=== PATIENT | male | born 1970 | race Caucasian/White ===

== ENCOUNTER 2016-11-30 21:10 | Emergency (ER) | payer SELFPAY ==
[~2016-11-30] VITALS: Ht 188 cm; Wt 133.0 kg
[~2016-11-30 21:10] MED LIST: ASPIRIN EC81 MG PO; BACTRIM DS1 TAB PO; HYDROCHLORO25 MG/TAB PO; LASIX 40 MG TAB40 MG PO; LASIX40 MG PO; LISINOPRIL10 MG PO; LISINOPRIL20 M1 PO; LORTAB 7.5 PO; METFORMIN500 MG PO; METOPROL TAR50 MG PO; METOPROLOL PO; MEVACOR20 MG PO; NO; ZESTRIL2.5 MG PO
[2016-11-30 21:12] VITALS: BP 152/117
== END 2016-11-30 21:25 | disposition left against medical advice (07) | DRG 951 ==
LOC: ED 21:10 → LWOBS 21:25
DX: Z91.19 Patient's noncompliance with other medical treatment and regimen (principal)

== ENCOUNTER 2016-12-03 15:26 | Observation (INO) | payer OTHER ==
[~2016-12-03] VITALS: Ht 188 cm; Wt 131.1 kg
[2016-12-03 00:33] VITALS: BP 136/99
--- NOTE | 2016-12-03 15:35 | NUR ---
PT TO ROOM FOR TREATMENT VIA WHEELCHAIR
[2016-12-03 16:06] LABS: HEMATOCRIT 48.5 % (39.0-50.0); HEMOGLOBIN 15.5 g/dl (14.0-18.0); IMMATURE GRANULOCYTES 0.5 % (0.0-1.0); MEAN CELL VOLUME 88.7 fL CALC (80.0-100.0); MEAN CORPUSCULAR HGB 28.3 pG CALC (26.0-32.0); NEUT# 5.66 thou/uL (1.82-7.42); RED BLOOD COUNT 5.47 mill/uL (4.70-6.10); RED CELL DISTRI WIDTH 17.6 % (11.5-15.5)
--- NOTE | 2016-12-03 16:15 | NUR ---
PT STATES THAT HE IS BEHIND ON HIS LASIX, THINKS THAT IS WHY HE IS SHORT OF BREATH.
--- NOTE | 2016-12-03 16:51 | NUR ---
PT PLACED ON O-2 PER SHORTNESS OF BREATH, DOES BECOME TACHYPNEIC WITH EXERTION.
[2016-12-03 17:14] LABS: ALBUMIN 3.8 g/dL (3.2-5.0); ALKALINE PHOSPHATASE 72 u/l (38-126); ANION GAP 16 (6-22 (CALC)); BILIRUBIN, TOTAL 0.8 mg/dL (0.0-1.4); BUN 21 mg/dL (9-20); BUN/CREATININE RATIO 17 (12-20 (CALC)); CALCIUM 9.2 mg/dL (8.4-10.2); CARBON DIOXIDE 25 mmol/l (22-30); CHLORIDE 103 mmol/l (95-108); CREATININE 1.3 mg/dL (0.7-1.3); GFR 60 ML/MIN (>=60 (CALC)); GFR FOR AFR.AMER. > 60 ML/MIN (>=60 (CALC)); GLUCOSE 132 mg/dL (75-110); SGOT/AST 40 u/l (17-59); SGPT/ALT 24 u/l (21-72); SODIUM 139 mmol/l (137-146); TOTAL PROTEIN 7.5 g/dL (6.3-8.2)
[2016-12-03 17:24] LABS: MYOGLOBIN 30 ng/mL (0 - 121)
--- NOTE | 2016-12-03 17:29 | NUR ---
PT SEEN TO HAVE SATS AT 82-84% WITHOUT OXYGEN, POSSIBLE SLEEP APNEA, RECOVERS QUICKLY TO 96-98% WHEN WAKENED.
[2016-12-03] MEDS ORDERED: LASIX 40 MG40 MG/TAB PO (17:41)
[2016-12-03] MEDS ORDERED: ASPIRIN81 MG PO (17:41)
[2016-12-03] MEDS ORDERED: ATORVASTATIN CA20 MG PO (17:42)
[2016-12-03] MEDS ORDERED: LOSARTAN POTASS25 MG PO (17:42)
[2016-12-03] MEDS ORDERED: SPIRONOLACT25 MG PO (17:42)
[2016-12-03] MEDS ORDERED: COREG25 MG PO (17:43)
--- NOTE | 2016-12-03 19:18 | NUR ---
REPORT TO ELBA, TO FLOOR SOON.
[2016-12-03 19:25] VITALS: BP 134/95
--- NOTE | 2016-12-03 19:25 | NUR ---
PT ARRIVED TO UNIT VIA STRETCHER WITH JOSE VARGAS. BEDSIDE REPORT RECEIVED. PT AMBULATED TO CHAIR AT BEDSIDE. SHORTNESS OF BREATH NOTED WITH EXERTION. OXYGEN IN PLACE AT 2L VIA NC. PT DENIES PAIN. DECLINED DIABTETIC MEDICATION ORDERED EARLIER. STATES THAT HE IS NOT A DIABETIC AND WILL NOT TAKE THE ORAL MEDICATION. PT ORIENTED TO ROOM. SAFETY MEASURES PUT IN PLACE. CALL LIGHT SYSTEM REVIEWED AND IN REACH. WILL CONTINUE TO MONITOR AND FOLLOW UP WITH EDUCATION ON MEDICATION AND DIABETES.
--- NOTE | 2016-12-03 19:31 | NUR ---
PT TAKEN TO ROOM 283 WITHOUT INCIDENT, REFUSES GOWN, REMOVED OXYGEN.
[2016-12-03 20:15] LABS: URINE BILIRUBIN - DIPSTICK NEGATIVE (NEGATIVE); URINE BLOOD DIPSTICK NEGATIVE (NEGATIVE); URINE CLARITY CLEAR; URINE COLOR YELLOW; URINE GLUCOSE - DIPSTICK NEGATIVE (NEGATIVE); URINE KETONE NEGATIVE (NEGATIVE); URINE LEUK ESTERASE NEGATIVE (Negative); URINE NITRITE - DIPSTICK NEGATIVE (Negative); URINE PROTEIN - DIPSTICK 30 mg/dL (NEG-TRACE); URINE SPECIFIC GRAVITY 1.015; URINE UROBILINOGEN - DIPSTICK 0.2 E.U./dL (0.2)
[2016-12-03 20:17] LABS: URINE SQUAMOUS EPITHELIAL CELL FEW EPI/hpf (0-FEW)
--- NOTE | 2016-12-04 | NUR ---
PT RESTING IN BED ON LEFT SIDE. UP TO BATHROOM NEEDED. DENIES PAIN. RESPIRATIONS EVEN AND SHALLOW. PT REMOVES NASAL CANNULA AND IS NONCOMPLIANT AT TIMES. SAFETY MEASURES IN PLACE. CALL LIGHT WITHIN REACH.
--- NOTE | 2016-12-04 04:00 | NUR ---
PT ASLEEP AT THIS TIME. NO SIGNS OF PAIN OR DISCOMFORT NOTED. RESPIRATIONS EVEN AND SHALLOW ON ROOM AIR. UP TO BATHROOM AD LINDA. INSTRUCTED TO CALL FOR ASSISTANCE NEEDED. SAFETY MEASURES IN PLACE. CALL LIGHT WITHIN REACH.
--- NOTE | 2016-12-04 07:00 | NUR ---
REPORT RECIEVED FROM SANDRA ARREOLA; PT RESTING IN CHAIR AT BEDSIDE WITH EYES CLOSED; NO S/S OF DISTRESS NOTED; CALL LIGHT WITHIN REACH; WILL CONTINUE TO MONITOR
[2016-12-04 08:19] VITALS: BP 141/101
[2016-12-04 11:08] VITALS: BP 128/90
--- NOTE | 2016-12-04 11:12 | NUR ---
PATIENT REFUSED TO HAVE HIS ACCU CHECK TEST DONE.
--- NOTE | 2016-12-04 12:14 | NUR ---
PT SITTING UP IN CHAIR AT BEDSIDE; LABORED BREATHING NOTED; PT OFFERED O2 FOR SOB; PT DECLINES AT THIS TIME; PT DENIES ANY OTHER NEEDS AT THIS TIME; CALL LIGHT WITHIN REACH; WILL CONTINUE TO MONITOR
[2016-12-04] MEDS ORDERED: LOSARTAN POTASS25 MG PO (13:32)
[2016-12-04] MEDS ORDERED: COREG25 MG PO (13:32)
[2016-12-04] MEDS ORDERED: ATORVASTATIN CA20 MG PO (13:32)
[2016-12-04] MEDS ORDERED: LASIX 40 MG40 MG/TAB PO (13:33)
[2016-12-04] MEDS ORDERED: SPIRONOLACT25 MG PO (13:33)
[2016-12-04] MEDS ORDERED: ASPIRIN81 MG PO (13:33)
--- NOTE | 2016-12-04 15:03 | NUR ---
Discharge instructions given. Patient verbalizes understanding of same. Discharged in stable condition via Wheelchair to Home with staff. All belongings sent with pt.
== END 2016-12-04 15:03 | disposition home or self-care (01) | DRG 293 ==
LOC: ENPENDDIS → ED 15:26 → ED-I 15:40 → ED 15:40 → ED-I 17:31 → ED 17:34 → MS2 17:35
PROVIDERS: Emergency Medicine; Internal Medicine; ADMIT Internal Medicine; ATTEND Internal Medicine
DX: I11.0 Hypertensive heart disease with heart failure (principal); I42.8 Other cardiomyopathies; I50.23 Acute on chronic systolic (congestive) heart failure; F17.220 Nicotine dependence, chewing tobacco, uncomplicated; R09.02 Hypoxemia; E66.9 Obesity, unspecified; E11.9 Type 2 diabetes mellitus without complications; Z68.37 Body mass index [BMI] 37.0-37.9, adult; Z91.14 Patient's other noncompliance with medication regimen
CPT/HCPCS: G0378

== ENCOUNTER 2017-01-04 20:49 | Emergency (ER) | payer OTHER ==
[~2017-01-04] VITALS: Ht 188 cm; Wt 220.0 kg
[~2017-01-04 20:49] MED LIST changes: +ASPIRIN81 MG PO; +ATORVASTATIN CA20 MG PO; +COREG25 MG PO; +LASIX 40 MG40 MG/TAB PO; +LOSARTAN POTASS25 MG PO; +SPIRONOLACT25 MG PO
[2017-01-04] MEDS ORDERED: LASIX 40 MG TAB40 MG PO (21:01)
[2017-01-04] MEDS ORDERED: LIPITOR20 M1 PO (21:04)
[2017-01-04 21:27] LABS: HEMATOCRIT 47.5 % (39.0-50.0); HEMOGLOBIN 15.6 g/dl (14.0-18.0); IMMATURE GRANULOCYTES 0.4 % (0.0-1.0); MEAN CELL VOLUME 87.6 fL CALC (80.0-100.0); MEAN CORPUSCULAR HGB 28.8 pG CALC (26.0-32.0); MEAN CORPUSCULAR HGB CONC 32.8 g/L CALC (32.0-36.0); NEUT# 6.6 thou/uL (1.82-7.42); RED BLOOD COUNT 5.42 mill/uL (4.70-6.10); RED CELL DISTRI WIDTH 15.2 % (11.5-15.5)
[2017-01-04 21:42] LABS: URINE BILIRUBIN - DIPSTICK NEGATIVE (NEGATIVE); URINE BLOOD DIPSTICK NEGATIVE (NEGATIVE); URINE CLARITY CLEAR; URINE COLOR YELLOW; URINE GLUCOSE - DIPSTICK NEGATIVE (NEGATIVE); URINE KETONE NEGATIVE (NEGATIVE); URINE LEUK ESTERASE NEGATIVE (NEGATIVE); URINE NITRITE - DIPSTICK NEGATIVE (Negative); URINE PROTEIN - DIPSTICK NEGATIVE (NEG-TRACE); URINE UROBILINOGEN - DIPSTICK 0.2 E.U./dL (0.2)
[2017-01-04 21:46] LABS: ALBUMIN 4.2 g/dL (3.2-5.0); ALKALINE PHOSPHATASE 74 u/l (38-126); ANION GAP 15 (6-22 (CALC)); BILIRUBIN, TOTAL 1.3 mg/dL (0.0-1.4); BUN 21 mg/dL (9-20); BUN/CREATININE RATIO 19 (12-20 (CALC)); CALCIUM 10.1 mg/dL (8.4-10.2); CARBON DIOXIDE 27 mmol/l (22-30); CHLORIDE 100 mmol/l (95-108); CREATININE 1.1 mg/dL (0.7-1.3); GFR > 60 ML/MIN (>=60 (CALC)); GFR FOR AFR.AMER. > 60 ML/MIN (>=60 (CALC)); GLUCOSE 98 mg/dL (75-110); POTASSIUM 4.2 mmol/l (3.5-5.1); SGOT/AST 30 u/l (17-59); SGPT/ALT 24 u/l (21-72); SODIUM 138 mmol/l (137-146); TOTAL PROTEIN 8.2 g/dL (6.3-8.2)
[2017-01-04 21:57] LABS: MYOGLOBIN 42 ng/mL (0 - 121)
[2017-01-04 22:15] VITALS: BP 138/98
== END 2017-01-04 23:55 | disposition home or self-care (01) | DRG 293 ==
LOC: ED 20:49
PROVIDERS: Emergency Medicine
DX: I11.0 Hypertensive heart disease with heart failure (principal); I42.9 Cardiomyopathy, unspecified; I50.9 Heart failure, unspecified; F17.210 Nicotine dependence, cigarettes, uncomplicated; Z95.810 Presence of automatic (implantable) cardiac defibrillator

== ENCOUNTER 2017-02-16 18:24 | Emergency (ER) | payer OTHER ==
[~2017-02-16] VITALS: Ht 188 cm; Wt 120.0 kg
[~2017-02-16 18:24] MED LIST changes: +LIPITOR20 M1 PO
[2017-02-16 18:54] LABS: HEMATOCRIT 43.7 % (39.0-50.0); HEMOGLOBIN 14.4 g/dl (14.0-18.0); IMMATURE GRANULOCYTES 0.3 % (0.0-1.0); MEAN CELL VOLUME 88.6 fL CALC (80.0-100.0); MEAN CORPUSCULAR HGB 29.2 pG CALC (26.0-32.0); NEUT# 3.99 thou/uL (1.82-7.42); RED BLOOD COUNT 4.93 mill/uL (4.70-6.10); RED CELL DISTRI WIDTH 15.3 % (11.5-15.5)
[2017-02-16 19:07] LABS: ALBUMIN 3.7 g/dL (3.2-5.0); ALKALINE PHOSPHATASE 56 u/l (38-126); ANION GAP 15 (6-22 (CALC)); BILIRUBIN, TOTAL 0.6 mg/dL (0.0-1.4); BUN 27 mg/dL (9-20); BUN/CREATININE RATIO 29 (12-20 (CALC)); CALCIUM 8.6 mg/dL (8.4-10.2); CARBON DIOXIDE 27 mmol/l (22-30); CHLORIDE 104 mmol/l (95-108); GFR > 60 ML/MIN (>=60 (CALC)); GFR FOR AFR.AMER. > 60 ML/MIN (>=60 (CALC)); GLUCOSE 114 mg/dL (75-110); POTASSIUM 4.7 mmol/l (3.5-5.1); SGOT/AST 22 u/l (17-59); SGPT/ALT 28 u/l (21-72); SODIUM 140 mmol/l (137-146); TOTAL PROTEIN 6.7 g/dL (6.3-8.2)
[2017-02-16] MEDS ORDERED: ULTRAM50 M1 PO (19:13)
[2017-02-16 19:25] VITALS: BP 174/64
== END 2017-02-16 19:25 | disposition home or self-care (01) | DRG 607 ==
LOC: ED 18:24
PROVIDERS: Emergency Medicine
DX: L85.3 Xerosis cutis (principal); M79.671 Pain in right foot; R22.43 Localized swelling, mass and lump, lower limb, bilateral; M79.672 Pain in left foot

== ENCOUNTER 2017-02-18 10:30 | Observation (INO) | payer OTHER ==
[~2017-02-18] VITALS: Ht 188 cm; Wt 121.8 kg
[~2017-02-18 10:30] MED LIST changes: +ULTRAM50 M1 PO
[2017-02-18 11:22] LABS: HEMATOCRIT 49.3 % (39.0-50.0); HEMOGLOBIN 15.8 g/dl (14.0-18.0); IMMATURE GRANULOCYTES 0.7 % (0.0-1.0); MEAN CELL VOLUME 90.5 fL CALC (80.0-100.0); NEUT# 5.12 thou/uL (1.82-7.42); RED BLOOD COUNT 5.45 mill/uL (4.70-6.10); RED CELL DISTRI WIDTH 15.8 % (11.5-15.5)
[2017-02-18 11:35] LABS: ALBUMIN 4.4 g/dL (3.2-5.0); ALKALINE PHOSPHATASE 64 u/l (38-126); ANION GAP 19 (6-22 (CALC)); BILIRUBIN, TOTAL 0.7 mg/dL (0.0-1.4); BUN 26 mg/dL (9-20); BUN/CREATININE RATIO 22 (12-20 (CALC)); CALCIUM 8.6 mg/dL (8.4-10.2); CARBON DIOXIDE 24 mmol/l (22-30); CHLORIDE 104 mmol/l (95-108); CREATININE 1.2 mg/dL (0.7-1.3); GFR > 60 ML/MIN (>=60 (CALC)); GFR FOR AFR.AMER. > 60 ML/MIN (>=60 (CALC)); GLUCOSE 117 mg/dL (75-110); SGOT/AST 30 u/l (17-59); SGPT/ALT 26 u/l (21-72); SODIUM 142 mmol/l (137-146); TOTAL PROTEIN 7.8 g/dL (6.3-8.2)
[2017-02-18 12:44] LABS: URINE BILIRUBIN - DIPSTICK NEGATIVE (NEGATIVE); URINE BLOOD DIPSTICK NEGATIVE (NEGATIVE); URINE CLARITY CLEAR; URINE COLOR YELLOW; URINE GLUCOSE - DIPSTICK NEGATIVE (NEGATIVE); URINE KETONE TRACE mg/dL (NEGATIVE); URINE LEUK ESTERASE NEGATIVE (NEGATIVE); URINE NITRITE - DIPSTICK NEGATIVE (Negative); URINE PH 5.5 (4.5-8.0); URINE PROTEIN - DIPSTICK 100 mg/dL (NEG-TRACE); URINE SPECIFIC GRAVITY >=1.030; URINE UROBILINOGEN - DIPSTICK 0.2 E.U./dL (0.2)
[2017-02-18 12:46] LABS: URINE MUCUS FEW hpf (NONE-FEW)
[2017-02-18 12:47] LABS: BARBITURATES NEGATIVE (NEGATIVE); COCAINE NEGATIVE (NEGATIVE); METHADONE NEGATIVE (NEGATIVE); OXCYCODONE NEGATIVE (NEGATIVE); TETRAHYDROCANNABIONOL NEGATIVE (NEGATIVE); TRICYLIC ANTIDEPRESSANTS NEGATIVE (NEGATIVE)
[2017-02-18 15:47] VITALS: BP 131/104
[2017-02-18 19:15] VITALS: BP 115/62; BP 140/90
[2017-02-18 23:50] VITALS: BP 131/91
[2017-02-19 04:50] VITALS: BP 111/78
[2017-02-19 08:39] VITALS: BP 133/108
[2017-02-19 09:45] VITALS: BP 133/108
== END 2017-02-19 12:15 | disposition left against medical advice (07) | DRG 293 ==
LOC: ED 10:30 → ED-I 10:56 → ED 10:56 → ED-I 14:13 → ED 14:42 → MS2 14:43
PROVIDERS: Emergency Medicine; ADMIT Internal Medicine; ATTEND Internal Medicine
DX: I11.0 Hypertensive heart disease with heart failure (principal); I42.8 Other cardiomyopathies; I50.23 Acute on chronic systolic (congestive) heart failure; E11.9 Type 2 diabetes mellitus without complications; F17.210 Nicotine dependence, cigarettes, uncomplicated; E66.9 Obesity, unspecified; G47.33 Obstructive sleep apnea (adult) (pediatric); I25.10 Atherosclerotic heart disease of native coronary artery without angina pectoris; Z95.810 Presence of automatic (implantable) cardiac defibrillator; Z91.14 Patient's other noncompliance with medication regimen
CPT/HCPCS: G0378; Q9967

== ENCOUNTER 2017-02-28 18:42 | Emergency (ER) | payer OTHER ==
[~2017-02-28] VITALS: Ht 188 cm; Wt 133.2 kg
[2017-02-28 19:57] LABS: HEMATOCRIT 45.1 % (39.0-50.0); HEMOGLOBIN 14.9 g/dl (14.0-18.0); IMMATURE GRANULOCYTES 0.3 % (0.0-1.0); MEAN CORPUSCULAR HGB 29.4 pG CALC (26.0-32.0); NEUT# 4.05 thou/uL (1.82-7.42); RED BLOOD COUNT 5.07 mill/uL (4.70-6.10); RED CELL DISTRI WIDTH 16.1 % (11.5-15.5)
[2017-02-28 20:07] LABS: ALBUMIN 3.2 g/dL (3.2-5.0); ALKALINE PHOSPHATASE 63 u/l (38-126); ANION GAP 11 (6-22 (CALC)); BUN 18 mg/dL (9-20); BUN/CREATININE RATIO 17 (12-20 (CALC)); CALCIUM 8.7 mg/dL (8.4-10.2); CARBON DIOXIDE 26 mmol/l (22-30); CHLORIDE 104 mmol/l (95-108); GFR > 60 ML/MIN (>=60 (CALC)); GFR FOR AFR.AMER. > 60 ML/MIN (>=60 (CALC)); GLUCOSE 100 mg/dL (75-110); POTASSIUM 3.5 mmol/l (3.5-5.1); SGOT/AST 30 u/l (17-59); SGPT/ALT 30 u/l (21-72); SODIUM 137 mmol/l (137-146)
[2017-02-28 20:19] LABS: MYOGLOBIN 64 ng/mL (0 - 121)
[2017-02-28 22:15] VITALS: BP 154/110
== END 2017-02-28 22:15 | disposition left against medical advice (07) | DRG 315 ==
LOC: ED 18:42
DX: T82.119A Breakdown (mechanical) of unspecified cardiac electronic device, initial encounter (principal); I50.22 Chronic systolic (congestive) heart failure; I11.0 Hypertensive heart disease with heart failure; I42.8 Other cardiomyopathies; F17.210 Nicotine dependence, cigarettes, uncomplicated; Y83.1 Surgical operation with implant of artificial internal device as the cause of abnormal reaction of the patient, or of later complication, without mention of misadventure at the time of the procedure; Z91.19 Patient's noncompliance with other medical treatment and regimen

== ENCOUNTER 2017-03-01 20:01 | Emergency (ER) | payer OTHER ==
[~2017-03-01] VITALS: Ht 188 cm; Wt 134.6 kg
[2017-03-01 21:56] LABS: HEMATOCRIT 45.8 % (39.0-50.0); IMMATURE GRANULOCYTES 1.5 % (0.0-1.0); MEAN CELL VOLUME 88.9 fL CALC (80.0-100.0); MEAN CORPUSCULAR HGB 29.1 pG CALC (26.0-32.0); MEAN CORPUSCULAR HGB CONC 32.8 g/L CALC (32.0-36.0); NEUT# 4.8 thou/uL (1.82-7.42); RED BLOOD COUNT 5.15 mill/uL (4.70-6.10); RED CELL DISTRI WIDTH 16.5 % (11.5-15.5)
[2017-03-01 22:09] LABS: ALBUMIN 3.6 g/dL (3.2-5.0); ALKALINE PHOSPHATASE 82 u/l (38-126); ANION GAP 12 (6-22 (CALC)); BILIRUBIN, TOTAL 0.9 mg/dL (0.0-1.4); BUN 22 mg/dL (9-20); BUN/CREATININE RATIO 22 (12-20 (CALC)); CALCIUM 8.4 mg/dL (8.4-10.2); CARBON DIOXIDE 24 mmol/l (22-30); CHLORIDE 105 mmol/l (95-108); GFR > 60 ML/MIN (>=60 (CALC)); GFR FOR AFR.AMER. > 60 ML/MIN (>=60 (CALC)); GLUCOSE 103 mg/dL (75-110); POTASSIUM 3.6 mmol/l (3.5-5.1); SGOT/AST 31 u/l (17-59); SGPT/ALT 35 u/l (21-72); SODIUM 138 mmol/l (137-146); TOTAL PROTEIN 6.8 g/dL (6.3-8.2)
[2017-03-01 22:18] LABS: MYOGLOBIN 45 ng/mL (0 - 121)
[2017-03-01 23:45] VITALS: BP 132/74
== END 2017-03-02 00:10 | disposition short-term general hospital (02) | DRG 315 ==
LOC: ED 20:01
PROVIDERS: Emergency Medicine
DX: T82.897A Other specified complication of cardiac prosthetic devices, implants and grafts, initial encounter (principal); I42.9 Cardiomyopathy, unspecified; I11.0 Hypertensive heart disease with heart failure; I50.9 Heart failure, unspecified; F17.210 Nicotine dependence, cigarettes, uncomplicated; Y83.1 Surgical operation with implant of artificial internal device as the cause of abnormal reaction of the patient, or of later complication, without mention of misadventure at the time of the procedure

== ENCOUNTER 2017-03-25 01:02 | Emergency (ER) | payer OTHER ==
[~2017-03-25] VITALS: Ht 188 cm; Wt 134.6 kg
[2017-03-25 01:58] LABS: HEMATOCRIT 42.6 % (39.0-50.0); HEMOGLOBIN 13.6 g/dl (14.0-18.0); IMMATURE GRANULOCYTES 0.6 % (0.0-1.0); MEAN CORPUSCULAR HGB 29.4 pG CALC (26.0-32.0); MEAN CORPUSCULAR HGB CONC 31.9 g/L CALC (32.0-36.0); NEUT# 3.67 thou/uL (1.82-7.42); RED BLOOD COUNT 4.63 mill/uL (4.70-6.10); RED CELL DISTRI WIDTH 16.2 % (11.5-15.5)
[2017-03-25 02:12] LABS: ALBUMIN 3.3 g/dL (3.2-5.0); ALKALINE PHOSPHATASE 62 u/l (38-126); ANION GAP 13 (6-22 (CALC)); BILIRUBIN, TOTAL 0.5 mg/dL (0.0-1.4); BUN 22 mg/dL (9-20); BUN/CREATININE RATIO 20 (12-20 (CALC)); CALCIUM 8.2 mg/dL (8.4-10.2); CARBON DIOXIDE 31 mmol/l (22-30); CHLORIDE 102 mmol/l (95-108); CREATININE 1.1 mg/dL (0.7-1.3); GFR > 60 ML/MIN (>=60 (CALC)); GFR FOR AFR.AMER. > 60 ML/MIN (>=60 (CALC)); GLUCOSE 140 mg/dL (75-110); POTASSIUM 3.8 mmol/l (3.5-5.1); SGOT/AST 24 u/l (17-59); SGPT/ALT 22 u/l (21-72); SODIUM 142 mmol/l (137-146); TOTAL PROTEIN 6.2 g/dL (6.3-8.2)
[2017-03-25 02:27] LABS: MYOGLOBIN 44 ng/mL (0 - 121)
[2017-03-25 03:17] VITALS: BP 107/64
== END 2017-03-25 03:17 | disposition home or self-care (01) | DRG 947 ==
LOC: ED 01:02
DX: R60.9 Edema, unspecified (principal); I50.23 Acute on chronic systolic (congestive) heart failure; I10 Essential (primary) hypertension; Z95.810 Presence of automatic (implantable) cardiac defibrillator; M79.605 Pain in left leg; M79.604 Pain in right leg; M25.472 Effusion, left ankle; M25.471 Effusion, right ankle

== ENCOUNTER 2017-04-04 14:06 | Inpatient (IN) | payer OTHER ==
[~2017-04-04] VITALS: Ht 188 cm; Wt 132.1 kg
[2017-04-04] MEDS ORDERED: COREG25 MG PO (14:40)
[2017-04-04] MEDS ORDERED: SPIRONOLACTONE25 MG PO (14:41)
[2017-04-04 14:55] LABS: HEMATOCRIT 46.6 % (39.0-50.0); IMMATURE GRANULOCYTES 0.4 % (0.0-1.0); MEAN CELL VOLUME 91.2 fL CALC (80.0-100.0); MEAN CORPUSCULAR HGB 29.4 pG CALC (26.0-32.0); MEAN CORPUSCULAR HGB CONC 32.2 g/L CALC (32.0-36.0); NEUT# 4.21 thou/uL (1.82-7.42); RED BLOOD COUNT 5.11 mill/uL (4.70-6.10); RED CELL DISTRI WIDTH 16.5 % (11.5-15.5)
[2017-04-04 15:16] LABS: ALBUMIN 3.7 g/dL (3.2-5.0); ALKALINE PHOSPHATASE 91 u/l (38-126); ANION GAP 14 (6-22 (CALC)); BILIRUBIN, TOTAL 1.6 mg/dL (0.0-1.4); BUN 13 mg/dL (9-20); BUN/CREATININE RATIO 13 (12-20 (CALC)); CALCIUM 8.6 mg/dL (8.4-10.2); CARBON DIOXIDE 26 mmol/l (22-30); CHLORIDE 105 mmol/l (95-108); GFR > 60 ML/MIN (>=60 (CALC)); GFR FOR AFR.AMER. > 60 ML/MIN (>=60 (CALC)); GLUCOSE 113 mg/dL (75-110); POTASSIUM 3.5 mmol/l (3.5-5.1); SGOT/AST 27 u/l (17-59); SGPT/ALT 25 u/l (21-72); SODIUM 142 mmol/l (137-146); TOTAL PROTEIN 7.1 g/dL (6.3-8.2)
[2017-04-04 15:27] LABS: MYOGLOBIN 56 ng/mL (0 - 121)
[2017-04-04 16:24] LABS: URINE BILIRUBIN - DIPSTICK NEGATIVE (NEGATIVE); URINE BLOOD DIPSTICK NEGATIVE (NEGATIVE); URINE CLARITY CLEAR; URINE COLOR YELLOW; URINE GLUCOSE - DIPSTICK NEGATIVE (NEGATIVE); URINE KETONE NEGATIVE (NEGATIVE); URINE LEUK ESTERASE NEGATIVE (NEGATIVE); URINE NITRITE - DIPSTICK NEGATIVE (Negative); URINE PROTEIN - DIPSTICK 30 mg/dL (NEG-TRACE); URINE SPECIFIC GRAVITY 1.025
[2017-04-04 16:30] LABS: BARBITURATES NEGATIVE (NEGATIVE); COCAINE NEGATIVE (NEGATIVE); METHADONE NEGATIVE (NEGATIVE); OXCYCODONE NEGATIVE (NEGATIVE); TETRAHYDROCANNABIONOL NEGATIVE (NEGATIVE); TRICYLIC ANTIDEPRESSANTS NEGATIVE (NEGATIVE)
[2017-04-04 17:00] LABS: URINE RBC 0-2 RBC/hpf (0-5); URINE WBC 0-2 WBC/hpf (0-5)
[2017-04-04 20:25] VITALS: BP 154/101
[2017-04-04 23:26] VITALS: BP 134/97
[2017-04-05 04:00] VITALS: BP 125/84
[2017-04-05 06:05] LABS: HEMATOCRIT 40.8 % (39.0-50.0); HEMOGLOBIN 13.4 g/dl (14.0-18.0); MEAN CELL VOLUME 89.7 fL CALC (80.0-100.0); MEAN CORPUSCULAR HGB 29.5 pG CALC (26.0-32.0); MEAN CORPUSCULAR HGB CONC 32.8 g/L CALC (32.0-36.0); RED BLOOD COUNT 4.55 mill/uL (4.70-6.10); RED CELL DISTRI WIDTH 16.2 % (11.5-15.5)
[2017-04-05 06:09] LABS: ANION GAP 13 (6-22 (CALC)); BUN 13 mg/dL (9-20); BUN/CREATININE RATIO 13 (12-20 (CALC)); CALCIUM 8.8 mg/dL (8.4-10.2); CARBON DIOXIDE 28 mmol/l (22-30); CHLORIDE 103 mmol/l (95-108); GFR > 60 ML/MIN (>=60 (CALC)); GFR FOR AFR.AMER. > 60 ML/MIN (>=60 (CALC)); GLUCOSE 121 mg/dL (75-110); POTASSIUM 3.4 mmol/l (3.5-5.1); SODIUM 140 mmol/l (137-146)
[2017-04-05 07:42] VITALS: BP 131/97
[2017-04-05 11:25] VITALS: BP 110/83
[2017-04-05 15:32] VITALS: BP 120/86
[2017-04-05 16:40] LABS: CHOLESTEROL HDL RATIO 5.4 (<4.4 (CALC))
[2017-04-05 20:00] VITALS: BP 119/94
[2017-04-05 23:30] VITALS: BP 142/92
[2017-04-06 04:00] VITALS: BP 130/91
[2017-04-06 06:13] LABS: HEMATOCRIT 43.8 % (39.0-50.0); HEMOGLOBIN 14.3 g/dl (14.0-18.0); MEAN CELL VOLUME 89.6 fL CALC (80.0-100.0); MEAN CORPUSCULAR HGB 29.2 pG CALC (26.0-32.0); MEAN CORPUSCULAR HGB CONC 32.6 g/L CALC (32.0-36.0); RED BLOOD COUNT 4.89 mill/uL (4.70-6.10); RED CELL DISTRI WIDTH 16.1 % (11.5-15.5)
[2017-04-06 06:40] LABS: ANION GAP 15 (6-22 (CALC)); BUN 16 mg/dL (9-20); BUN/CREATININE RATIO 14 (12-20 (CALC)); CALCIUM 9.3 mg/dL (8.4-10.2); CARBON DIOXIDE 28 mmol/l (22-30); CHLORIDE 101 mmol/l (95-108); CREATININE 1.2 mg/dL (0.7-1.3); GFR > 60 ML/MIN (>=60 (CALC)); GFR FOR AFR.AMER. > 60 ML/MIN (>=60 (CALC)); GLUCOSE 100 mg/dL (75-110); POTASSIUM 3.7 mmol/l (3.5-5.1); SODIUM 140 mmol/l (137-146)
[2017-04-06 07:25] VITALS: BP 134/97
[2017-04-06 11:04] VITALS: BP 115/82
[2017-04-06 15:18] VITALS: BP 127/94
[2017-04-06 19:24] VITALS: BP 133/95
[2017-04-06 23:44] VITALS: BP 115/80
[2017-04-07 04:29] VITALS: BP 140/100
[2017-04-07 05:24] LABS: ANION GAP 15 (6-22 (CALC)); BUN 21 mg/dL (9-20); BUN/CREATININE RATIO 17 (12-20 (CALC)); CALCIUM 9.6 mg/dL (8.4-10.2); CARBON DIOXIDE 32 mmol/l (22-30); CHLORIDE 97 mmol/l (95-108); CREATININE 1.3 mg/dL (0.7-1.3); GFR 60 ML/MIN (>=60 (CALC)); GFR FOR AFR.AMER. > 60 ML/MIN (>=60 (CALC)); GLUCOSE 141 mg/dL (75-110); MAGNESIUM 1.7 mg/dL (1.6-2.3); POTASSIUM 4.2 mmol/l (3.5-5.1); SODIUM 140 mmol/l (137-146)
[2017-04-07 08:20] VITALS: BP 124/86
[2017-04-07 08:21] VITALS: BP 124/86
== END 2017-04-07 09:25 | disposition left against medical advice (07) | DRG 293 ==
LOC: ED 14:06 → ED-I 15:22 → ED 16:21 → MS2 16:22 → ICU 16:22 → MS2 19:59
PROVIDERS: Emergency Medicine; Nurse Practitioner Family; ADMIT Internal Medicine; ATTEND Internal Medicine
DX: I11.0 Hypertensive heart disease with heart failure (principal); I42.8 Other cardiomyopathies; I50.23 Acute on chronic systolic (congestive) heart failure; E66.9 Obesity, unspecified; F17.220 Nicotine dependence, chewing tobacco, uncomplicated; E11.9 Type 2 diabetes mellitus without complications; G47.33 Obstructive sleep apnea (adult) (pediatric); E78.5 Hyperlipidemia, unspecified; Z59.0 Homelessness; Z68.39 Body mass index [BMI] 39.0-39.9, adult; Z91.14 Patient's other noncompliance with medication regimen; Z95.810 Presence of automatic (implantable) cardiac defibrillator

== ENCOUNTER 2018-07-14 16:02 | Observation (INO) | payer SELFPAY ==
[~2018-07-14] VITALS: Ht 188 cm; Wt 136.0 kg
[~2018-07-14 16:02] MED LIST changes: +SPIRONOLACTONE25 MG PO
--- NOTE | 2018-07-14 16:13 | NUR ---
PATIENT TO ROOM VIA WHEELCHAIR AND PHYSICIAN NOTIFIED OF PATIENT STATUS
--- NOTE | 2018-07-14 16:35 | NUR ---
PATIENT REPORTS BEING DC A MONTH PRIOR FROM HOSPITAL IN [place] FOR INFECTION TO RIGHT LEG. RIGHT LEG IS RED, SWOLLEN, WITH CLEAR YELLOW DRAINAGE.
[2018-07-14 17:23] LABS: IMMATURE GRANULOCYTES 0.6 % (0.0-5.0); MEAN CELL VOLUME 90.2 fL CALC (80.0-100.0); MEAN CORPUSCULAR HGB 29.1 pG CALC (26.0-32.0); MEAN CORPUSCULAR HGB CONC 32.3 g/L CALC (32.0-36.0); NEUT# 2.9 thou/uL (1.82-7.42); RED BLOOD COUNT 3.88 mill/uL (4.70-6.10); RED CELL DISTRI WIDTH 13.2 % (11.5-15.5)
[2018-07-14] MEDS ORDERED: ASPIRIN 81 LOW81 MG PO (17:35)
--- NOTE | 2018-07-14 17:35 | NUR ---
PATIENT REPORTS RIGHT LEG PAIN 05/31, INFORMED.
[2018-07-14 17:47] LABS: HEMOGLOBIN 11.3 g/dl (14.0-18.0)
[2018-07-14 18:01] LABS: ALBUMIN 3.3 g/dL (3.2-5.0); ALKALINE PHOSPHATASE 50 u/l (38-126); ANION GAP 10 (6-22 (CALC)); BILIRUBIN, TOTAL 0.6 mg/dL (0.0-1.4); BUN 15 mg/dL (9-20); BUN/CREATININE RATIO 15 (12-20 (CALC)); CARBON DIOXIDE 29 mmol/l (22-30); CHLORIDE 104 mmol/l (95-108); GFR > 60 ML/MIN (>=60 (CALC)); GFR FOR AFR.AMER. > 60 ML/MIN (>=60 (CALC)); POTASSIUM 4.2 mmol/l (3.5-5.1); SGOT/AST 26 u/l (17-59); SODIUM 139 mmol/l (137-146); TOTAL PROTEIN 7.9 g/dL (6.3-8.2)
[2018-07-14 18:10] LABS: MYOGLOBIN 34 ng/mL (0 - 121)
--- NOTE | 2018-07-14 18:15 | NUR ---
PATIENT REPORTS PAIN 9/10.
--- NOTE | 2018-07-14 18:27 | NUR ---
AT BEDSIDE TO DISCUSS RESULTS AND ADMIT.
--- NOTE | 2018-07-14 18:55 | NUR ---
REPORT CALLED TO JOSE JOHNSON. INFORMED OF RESULTS AND TREATMENT. REQUEST TO HOLD PATIENT FOR 15 MINUTES. ER NURSE JOSE SARMIENTO INFORMED. CARE RELINQUISHED. PATIENT IN STABLE CONDITION.
[2018-07-14 19:15] VITALS: BP 154/99
--- NOTE | 2018-07-14 19:15 | NUR ---
ANTIBIOTICS COMPLETED. LEG WRAPPED IN TOWEL FOR TRANSPORT. TO FLOOR VIA STRETCHER. CANE AND SHIRT WITH PT. PT AMBULATORY TO SCALE AND BED UPON ARRIVAL.
--- NOTE | 2018-07-14 19:15 | NUR ---
Admission Note Report Given to: SBAR PRINTED TO FLOOR Transported by: Wheelchair X Stretcher Transported with: X Nurse Transporter X Patent IV O2 X Caseworker Protective Services
--- NOTE | 2018-07-14 20:30 | NUR ---
PT CALLED REQUESTING FOOD, WHEN AIDE ENTERED ROOM TO OBTAIN ACCU-CHECK PT REFUSED. I ENTERED ROOM TO ASSESS, ADMIT AND START IV FLUIDS FOR PT. HE REFUSED ALL TREATMENT. I ASKED TO LISTEN TO HIS LUNGS AND ASSESS HIS LEG, BUT HE REFUSED STATING HE WILL LEAVE IF HE HAS TO DO ALL THAT. I INFORMED PT THAT HE HAS A RIGHT TO REFUSE TREATMENT AND THAT I WOULD NOTIFY PHYSICIAN. PT LEFT IN BED W/LIGHTS ON AND DOOR OPEN. PT USED CALL SYSTEM TO REQUEST HIS DOOR BE CLOSED AND TO BE LEFT ALONE.
--- NOTE | 2018-07-14 20:50 | NUR ---
PT REFUSED ALL TREATMENT, PHYSICIAN NOTIFIED. PT LEFT AMA.
== END 2018-07-14 20:50 | disposition left against medical advice (07) | DRG 603 ==
LOC: ED 16:02 → ED-I 18:09 → ED 18:23 → MS2 18:24
PROVIDERS: Emergency Medicine; ADMIT Internal Medicine; ATTEND Internal Medicine
DX: L03.115 Cellulitis of right lower limb (principal); I11.0 Hypertensive heart disease with heart failure; I50.9 Heart failure, unspecified; T46.5X6A Underdosing of other antihypertensive drugs, initial encounter; F17.200 Nicotine dependence, unspecified, uncomplicated; B96.5 Pseudomonas (aeruginosa) (mallei) (pseudomallei) as the cause of diseases classified elsewhere; Z91.128 Patient's intentional underdosing of medication regimen for other reason
CPT/HCPCS: G0378

== ENCOUNTER 2018-08-16 00:02 | Emergency (ER) | payer SELFPAY ==
[~2018-08-16] VITALS: Ht 188 cm; Wt 127.2 kg
[~2018-08-16 00:02] MED LIST changes: +ASPIRIN 81 LOW81 MG PO
[2018-08-16 00:53] LABS: HEMATOCRIT 40.1 % (39.0-50.0); IMMATURE GRANULOCYTES 0.6 % (0.0-5.0); MEAN CELL VOLUME 89.5 fL CALC (80.0-100.0); MEAN CORPUSCULAR HGB CONC 32.4 g/L CALC (32.0-36.0); NEUT# 5.78 thou/uL (1.82-7.42); RED BLOOD COUNT 4.48 mill/uL (4.70-6.10); RED CELL DISTRI WIDTH 14.9 % (11.5-15.5)
[2018-08-16 01:06] LABS: ALBUMIN 3.6 g/dL (3.2-5.0); ALKALINE PHOSPHATASE 68 u/l (38-126); ANION GAP 16 (6-22 (CALC)); BILIRUBIN, TOTAL 1.5 mg/dL (0.0-1.4); BUN 19 mg/dL (9-20); BUN/CREATININE RATIO 14 (12-20 (CALC)); CARBON DIOXIDE 24 mmol/l (22-30); CHLORIDE 101 mmol/l (95-108); CREATININE 1.4 mg/dL (0.7-1.3); GFR 54 ML/MIN (>=60 (CALC)); GFR FOR AFR.AMER. > 60 ML/MIN (>=60 (CALC)); POTASSIUM 3.9 mmol/l (3.5-5.1); SODIUM 137 mmol/l (137-146); TOTAL PROTEIN 7.8 g/dL (6.3-8.2)
[2018-08-16 01:09] LABS: SGOT/AST 319 u/l (17-59)
[2018-08-16 01:18] LABS: MYOGLOBIN 63 ng/mL (0 - 121)
[2018-08-16 02:07] VITALS: BP 130/91
[2018-08-17] MEDS ORDERED: MOTRIN400 MG PO (15:42)
[2018-08-17] MEDS ORDERED: VOLTAREN1%GEL TOP (15:42)
[2018-08-17] MEDS ORDERED: LASIX 40 MG TAB40 MG PO (15:42)
== END 2018-08-16 02:13 | disposition home or self-care (01) | DRG 293 ==
LOC: ED 00:02
PROVIDERS: Emergency Medicine
DX: I11.0 Hypertensive heart disease with heart failure (principal); I50.9 Heart failure, unspecified; I42.9 Cardiomyopathy, unspecified; T50.906A Underdosing of unspecified drugs, medicaments and biological substances, initial encounter; Z91.128 Patient's intentional underdosing of medication regimen for other reason

== ENCOUNTER 2018-08-17 12:52 | Emergency (ER) | payer SELFPAY ==
[~2018-08-17] VITALS: Ht 188 cm; Wt 140.0 kg
[2018-08-17 14:22] LABS: HEMATOCRIT 39.2 % (39.0-50.0); HEMOGLOBIN 12.8 g/dl (14.0-18.0); IMMATURE GRANULOCYTES 0.7 % (0.0-5.0); MEAN CELL VOLUME 89.3 fL CALC (80.0-100.0); MEAN CORPUSCULAR HGB 29.2 pG CALC (26.0-32.0); MEAN CORPUSCULAR HGB CONC 32.7 g/L CALC (32.0-36.0); NEUT# 6.83 thou/uL (1.82-7.42); RED BLOOD COUNT 4.39 mill/uL (4.70-6.10); RED CELL DISTRI WIDTH 15.2 % (11.5-15.5)
[2018-08-17 14:41] LABS: ANION GAP 15 (6-22 (CALC)); BUN 24 mg/dL (9-20); BUN/CREATININE RATIO 21 (12-20 (CALC)); CARBON DIOXIDE 20 mmol/l (22-30); CHLORIDE 102 mmol/l (95-108); CREATININE 1.2 mg/dL (0.7-1.3); GFR > 60 ML/MIN (>=60 (CALC)); GFR FOR AFR.AMER. > 60 ML/MIN (>=60 (CALC)); POTASSIUM 3.9 mmol/l (3.5-5.1); SODIUM 133 mmol/l (137-146)
[2018-08-17] MEDS ORDERED: LASIX 40 MG TAB40 MG PO (15:42)
[2018-08-17] MEDS ORDERED: VOLTAREN1%GEL TOP (15:42)
[2018-08-17] MEDS ORDERED: MOTRIN400 MG PO (15:42)
[2018-08-17 18:10] VITALS: BP 135/97
== END 2018-08-17 18:10 | disposition home or self-care (01) | DRG 293 ==
LOC: ED 12:52
PROVIDERS: Family Medicine
DX: I11.0 Hypertensive heart disease with heart failure (principal); I50.9 Heart failure, unspecified; M25.511 Pain in right shoulder; Z95.810 Presence of automatic (implantable) cardiac defibrillator

== ENCOUNTER 2018-08-25 06:03 | Inpatient (IN) | payer SELFPAY ==
[~2018-08-25] VITALS: Ht 188 cm; Wt 128.1 kg
[2018-08-25] VITALS (32 sets, daily range): BP systolic 124–164; BP diastolic 80–116
[~2018-08-25 06:03] MED LIST changes: +MOTRIN400 MG PO; +VOLTAREN1%GEL TOP
--- NOTE | 2018-08-25 06:05 | NUR ---
PT WHEELED STRAIGHT BACK TO ROOM 9 AND TRIAGED. SOB STARTED 4AM.
--- NOTE | 2018-08-25 06:21 | NUR ---
BREATHING TREATMENT GIVEN USING MOUTH PEICE. BREATHING TECH. FOR GOOD DEPOSITION TO THE LUNGS.
--- NOTE | 2018-08-25 06:25 | NUR ---
ASKED PT ABOUT MEDICATION. HE WAS UNABLE TO LIST ANY MEDICATIONS. STATED HE IS SUPPOSED TO TAKE FLUID PILL, A HEART PILL, CHOLESTEROL PILL, BLOOD PRESSURE PILL.
--- NOTE | 2018-08-25 06:28 | NUR ---
TOOK SCALE INTO ROOM AND WEIGHED PT. 145 KG.
[2018-08-25 06:36] LABS: HEMATOCRIT 44.9 % (39.0-50.0); IMMATURE GRANULOCYTES 0.5 % (0.0-5.0); MEAN CELL VOLUME 91.3 fL CALC (80.0-100.0); MEAN CORPUSCULAR HGB 28.5 pG CALC (26.0-32.0); MEAN CORPUSCULAR HGB CONC 31.2 g/L CALC (32.0-36.0); NEUT# 5.69 thou/uL (1.82-7.42); RED BLOOD COUNT 4.92 mill/uL (4.70-6.10); RED CELL DISTRI WIDTH 15.3 % (11.5-15.5)
[2018-08-25 06:50] LABS: ALBUMIN 3.6 g/dL (3.2-5.0); ALKALINE PHOSPHATASE 75 u/l (38-126); BILIRUBIN, TOTAL 0.7 mg/dL (0.0-1.4); BUN 22 mg/dL (9-20); BUN/CREATININE RATIO 18 (12-20 (CALC)); CARBON DIOXIDE 26 mmol/l (22-30); CHLORIDE 102 mmol/l (95-108); CREATININE 1.2 mg/dL (0.7-1.3); GFR > 60 ML/MIN (>=60 (CALC)); GFR FOR AFR.AMER. > 60 ML/MIN (>=60 (CALC)); SODIUM 139 mmol/l (137-146)
[2018-08-25 06:51] LABS: D-DIMER 1.14 mg/L (0.19-0.60); INTERNATIONAL NORMALIZED RATIO 1.3 RATIO (0.7-1.3)
[2018-08-25 06:53] LABS: ANION GAP 16 (6-22 (CALC))
--- NOTE | 2018-08-25 06:53 | NUR ---
PT RETURNED FROM XRAY. REPORT GIVEN TO JOSE FOSTER
[2018-08-25 06:54] LABS: POTASSIUM 4.7 mmol/l (3.5-5.1); SGOT/AST 44 u/l (17-59)
[2018-08-25 07:03] LABS: MYOGLOBIN 81 ng/mL (0 - 121)
--- NOTE | 2018-08-25 07:16 | NUR ---
PT STATES NEED TO USE THE MAIN RESTROOM- STATES DOES NOT WANT TO USE A BSC- PT AMBULATED TO RESTROOM WITH STEADY GAIT. INFORMED TO PULL REDCORD IF ASSISTANCE NEEDED
--- NOTE | 2018-08-25 07:48 | NUR ---
RADIOLOGY CALLED-REPORTED PT DOES NOT WANT CT DONE " TO HARD TO BREATHE WHEN LAYING FLAT". TECH PROVIDED PILLOWS AND REPOSITONING BUT PT DECLINED
--- NOTE | 2018-08-25 08:48 | NUR ---
PT RESTING ON STRETCHER, STATES HAS A MINOR HEADACHE, PT BEGINS TO HYPERVENTILATE WHEN RN ENTERS THE ROOM, HYPERVENTILATIONS CEASES WHILE NO ONE IS IN THE ROOM. IV PATENT WITH NITRO RUNNING.
--- NOTE | 2018-08-25 09:40 | NUR ---
REPORT CALLED TO ICU- RASHAWN GARCIA ACCEPTED PT
--- NOTE | 2018-08-25 09:50 | NUR ---
Admission Note Report Given to: RASHAWN GARCIA Transported by: Wheelchair X Stretcher Transported with: X Nurse Transporter XX Patent IV X O2 X Safety And Health Manager TRANSPORTED TO ICU 4 WITHOUT INCIDENT
--- NOTE | 2018-08-25 09:56 | NUR ---
male pt received from ICU bed 4 via stretcher accompanied by Anai Sanders RN in stable condition; pt ambulatory to scale then bed with steady gait; weight obtained; admission assessment completed at this time; pt appears agitated with staff and admission questions; pt alert and oriented; denies pain; c/c of sob starting at 0400; pt admits to cp 2 days ago; resp labored; lungs clear; skin color wnl; ra; echo vascular technologist cough noted; pt refusing oxygen; hr reg; strong pulses; 3+ edema noted to ble; sr-st on monitor; abd distended/firm with bs present; pt admits to bm 08/24/18; no bm noted per service writer advisor at this time; pt admits abd is not usually this large; pt admits to voiding without pain or burning; no urine to inspect at this time; urinal provided; #18 to rac patent with ntg gtt infusing at 75mcg/min; ns at kvo; no redness or edema noted at site; redness noted to bilat skins; pt removed gown per self; plan of care/ meds explained; call light within reach; will continue to monitor
[2018-08-25 10:02] LABS: URINE BILIRUBIN - DIPSTICK NEGATIVE (NEGATIVE); URINE BLOOD DIPSTICK TRACE-LYSED (NEGATIVE); URINE COLOR YELLOW; URINE GLUCOSE - DIPSTICK NEGATIVE (NEGATIVE); URINE KETONE NEGATIVE (NEGATIVE); URINE LEUK ESTERASE NEGATIVE (NEGATIVE); URINE NITRITE - DIPSTICK NEGATIVE (Negative); URINE PROTEIN - DIPSTICK TRACE mg/dL (NEG-TRACE); URINE UROBILINOGEN - DIPSTICK 0.2 E.U./dL (0.2)
--- NOTE | 2018-08-25 10:20 | NUR ---
pt industrial refrigeration mechanic light; requesting help; fiction and nonfiction prose writer inquires what kind of help do you need; pt request staff to pull sheet up for him; sheet noted at knees and within reach; pt strongly encrouaged to increase self care/adls; will continue to monitor
--- NOTE | 2018-08-25 11:39 | NUR ---
pharm student at bedside to reconcile meds; [facility] pharm to be contacted for med list
--- NOTE | 2018-08-25 12:00 | NUR ---
awake in bed; offers no complaints; no distress noted; resp labored on exertion; iv patent; no redness or edema noted at site; ntg gtt cont at 75mcg/min; sr on monitor; tolerated lunch well; call light within reach; will continue to monitor
[2018-08-25] MEDS ORDERED: IBUPROFEN200 MG PO (12:02)
[2018-08-25] MEDS ORDERED: DICLOFENAC SODIUM1 % TOP (12:03)
--- NOTE | 2018-08-25 12:06 | NUR ---
Dr Paez present at bedside to assess pt and discuss plan of care
[2018-08-25] MEDS ORDERED: LASIX 40 MG TAB40 MG PO (12:11)
--- NOTE | 2018-08-25 12:12 | NUR ---
Attempted to get a list of medications directly from the patient however he stated he does not know the names of his medication. Obtained the name of the pharmacy that he goes to which is [facility] in [place]. Obtained a fax of the patient's medications that he gets filled at [facility].
--- NOTE | 2018-08-25 12:15 | NUR ---
plan of care explained per Dr Paez and travel writer; pt agree with o2 therapy and humphreys catheter; ntg gtt titrated to 70mcg/min; will continue to monitor
--- NOTE | 2018-08-25 12:23 | NUR ---
o2 per nc placed at 2L; 16Fr humphreys catheter inserted x1 attempt using environmental health technologist; immed return of clear yellow urine approx 200cc; cath yeung device placed; call light within reach; will continue to monitor
--- NOTE | 2018-08-25 14:00 | NUR ---
awake in bed; frequent outburst noted; pt testing consultant light frequently for vaious needs; pt request fan provided; pt request fan to be turned off; pt request iv's to be discontinued; plan of care explained; humphreys to gravity; o2 per nc; sr on monitor; call light within reach; will continue to monitor
--- NOTE | 2018-08-25 14:20 | NUR ---
pt transported to US via wc with staff in stable condition; bumex gtt continues; portable o2 intact; will continue to monitor
--- NOTE | 2018-08-25 14:40 | NUR ---
pt back from US; resp labored; assisted back to bed; pt refusing o2; states "it's burning my nose" pt explained humidified is on oxygen; iv's patent; no redness or edema noted at site; humphreys to gravity; sr on monitor; pt removed gown; states "it's choking me" larger gown has been provided; pt request real estate underwriter to remove pillow from bed; pt with complaints of back pain, neck pain and headache; call light within reach; will continue to monitor
--- NOTE | 2018-08-25 14:55 | NUR ---
Dr Paez called per telegraphic typewriter operator; telegraphic typewriter operator informed Dr Paez of pt complaints of pain/ headache, neck pain, shoulder pain; telegraphic typewriter operator also request anxiety meds; MD will come assess pt in ICU
--- NOTE | 2018-08-25 15:02 | NUR ---
warm pack provided for right shoulder pain; ice pack provided for neck
--- NOTE | 2018-08-25 16:00 | NUR ---
pt resting in bed with eyes closed; occasional outburst noted when pt wakes; iv patent; no redness or edema noted at site; bumex gtt continues at 0.5mg/hr; no redness or edema noted at site; humphreys to gravity; ra/ pt refusing oxygen; call light within reach; will continue to monitor
--- NOTE | 2018-08-25 17:19 | NUR ---
Dr Paez present on unit; orders received
--- NOTE | 2018-08-25 17:38 | NUR ---
PT. C/O NECK PAIN 05/01; MEDICATED WITH ORDERED PERCOCET; WILL REASSESS; CALL LIGHT IS IN REACH.
--- NOTE | 2018-08-25 17:44 | NUR ---
awake in bed eating dinner and conversing on cell phone; iv patent; ra; sr on monitor; humphreys to gravity; bed in lowest position; side rails elevated; call light within reach
--- NOTE | 2018-08-25 20:15 | NUR ---
pulled bp cuff off. refused to have replaced.
--- NOTE | 2018-08-25 20:15 | NUR ---
accucheck per planning division superintendent. pt asked for snack & bedtime snack given. after he ate snack pt requested more snacks. request denied. instructed pt about diabetic diet. pt became very loud, agitated & spoke rude to staff. demanded curtain pulled & door shut. stated "pull my curtain & shut my door. i don't want any medicine. i want to be left alone." instructed pt not to speak rude to staff. pt cont to be rude & hateful & demanded curtain pulled & door shut. curtain pulled & door shut per staff. no apparent resp distress. clinique counter manager shows sinus rhythm pvcs 1st degree avb. #18 rac bumex gtt infusing @ 0.5mghr. humphreys cath in place. urine clear yellow. fluid restriction & fall precautions conts.
--- NOTE | 2018-08-25 22:00 | NUR ---
eyes closed. no distress. classroom monitor shows sinus rhythm pvcs.
[2018-08-26] VITALS (14 sets, daily range): BP systolic 113–157; BP diastolic 82–106
--- NOTE | 2018-08-26 00:01 | NUR ---
resting quietly. hob remains in high fowlers position. no distress.
--- NOTE | 2018-08-26 02:00 | NUR ---
resting quietly. resps even & unlabored. no apparent distress. radiation monitor shows sinus rhythm pvcs.
--- NOTE | 2018-08-26 03:15 | NUR ---
awake. requested food & water. request denied. instructed about diabetic diet & fluid restriction. pt upset & said "i haven't bothered you all night." instructed pt again about diabetic diet & fluid restriction.
--- NOTE | 2018-08-26 03:30 | NUR ---
pt requested physician to be called regarding diet & fluid restriction. request denied. offered few ice chips to pt. pt then said "if i can't talk to the doctor i want to leave." instructed pt ama form was available. when assessed for orientation by nurse misha casey rn pt knows month, date, year, & rosy was president & "he's coming for you mother collin." instructed pt how his ride home was to enter thru er waiting room & front doors were locked. pt admitted he would stay until morning.
--- NOTE | 2018-08-26 03:45 | NUR ---
few ice chips given per request.
--- NOTE | 2018-08-26 03:57 | NUR ---
stood to weigh. christiane well.
--- NOTE | 2018-08-26 04:10 | NUR ---
requested extra coban to be applied to saline lock. extra coban applied.
--- NOTE | 2018-08-26 04:50 | NUR ---
refused blood draw.
--- NOTE | 2018-08-26 05:51 | NUR ---
eyes closed. monitoring specialist shows sinus rhythm pvcs 1st degree avb.
--- NOTE | 2018-08-26 06:52 | NUR ---
PATIENT REFUSED TO GET ACCUCHECK DONE NURSE NOTIFIED.
--- NOTE | 2018-08-26 07:15 | NUR ---
PT OOB TO BSC, CONTINIUENT OF BM AND BACK TO BED WITH STAND BY ASSIST SELF IRWIN CARE PROVIDED, PT DECLINES GOWN IS DEMANDING AND INCONSIDERATE WITH STAFF MEMBERS, AM ASSESSMENT COMPLETED; SEE INTERVENTIONS, LUNGS CLEAR/ DIMINSHED WITH BUMEX GTT INFUSING AT PRESCRIBED RATE, WITH REBOLLAR CATH INTACT DRAINING CLEAR YELLOW URINE, CATH SECURITY DEVICE INTACT, IV ACCESS IN RAC INFUSING BUMEX W/O INCIDENT, CALL APPAIH WITHIN REACH, ENCOURAGED TO CALL FOR ANY NEEDED ASSISTANCE, TELE LEADS CHANGED, COMFORT MEASURES PROVIDED, WILL CONTINUE TO MONITOR
--- NOTE | 2018-08-26 07:35 | NUR ---
AM MEAL DELIVERED PT WAVES HAND AT COFFEE AND SAYS 'THEY'RE GONNA HAVE TO BRING ME SOMETHING ELSE COFFEE ISN'T GONNA WORK FOR ME" WHEN ASKED WHAT HE WOULD LIKE IN PLCE "ANY KIND OF JUICE" COFFEE REMOVED AND JUICE PROVIDED
--- NOTE | 2018-08-26 07:38 | NUR ---
P-T HAS OCCASIONAL DRY RANCH MANAGER COUGH
--- NOTE | 2018-08-26 08:45 | NUR ---
TAKES AM PO MEDICATIONS W/O INCIDENT, REFUSES LOVENOX SQ, EDUCATED REGARDNG REASON FOR ADMINISTRATION, RISKS BENEFITS ETC..PT STILL REFUSES.
--- NOTE | 2018-08-26 08:47 | NUR ---
HOUSEKEEPING IN ROOM FOR FRESHEN UP. PT CALLS ASKING FOR SNACK, PROVIDED WITH THEODORE HAYNES 2 OKGS, RE-INFORCED FLUID RESTRICTION, CALL APPIAH WITHIN REACH.
--- NOTE | 2018-08-26 09:23 | NUR ---
PT DOZING, NO S/S OF DISTRESS OR DOSCOMFROT, CALL APPIAH WITHIN REACH.
--- NOTE | 2018-08-26 10:37 | NUR ---
INTO SEE PATIENT AND DISCUSS PLAN OF CARE. PT RUDE AND DISRESPECTFUL TO DOCTOR, CURSING AND UNCOOPERATIVE.
--- NOTE | 2018-08-26 11:29 | NUR ---
SET UP ASSIST PROVIDED FOR AFTERNOON MEAL,
--- NOTE | 2018-08-26 11:51 | NUR ---
TOLERATING DIET WELL WITH 100% INTAKE, CALL APPIAH WITHIN REACH.
--- NOTE | 2018-08-26 12:25 | NUR ---
pt resting in bed, after being up to bsc, complaints of headache will medicate as ordered, call hamilton within reach.
--- NOTE | 2018-08-26 12:42 | NUR ---
IV ABT and bumex gtt infusing as ordered
--- NOTE | 2018-08-26 14:50 | NUR ---
LARGER BEDSIDE COMMODE PROVIDED PER PT REQUEST, CONTINUE TO MONITOR FLUID INTAKE AND FLUID RESTRICTION MAINTAINED.
--- NOTE | 2018-08-26 16:58 | NUR ---
PT RESTING IN BED, MEDICATED AGAIN FOR COMPLAINT FO HEADACHE, OFFERS NO OTHER COMPLAINTS, CALL APPIAH WITHIN REACH, BUMEX GTT CONTINUES WILL CONTINUE TO MONITOR
--- NOTE | 2018-08-26 17:18 | NUR ---
SET UP ASSIST FOR OM MEAL, FLUID RESTRICTION MAINTAINED, CALL APPIAH WITHIN REACH
--- NOTE | 2018-08-26 17:32 | NUR ---
DIETARY REP AT BEDSIDE FOR MEAL CHOICES PER PT REQUEST.
--- NOTE | 2018-08-26 17:51 | NUR ---
OFFERS NO NEW COMPLAINTS FLUID RESTRICTION MAINTAINED, CALL APPIAH WITHIN REACH
--- NOTE | 2018-08-26 18:22 | NUR ---
PT RESTING IN BED, OFFERS NO NEW COMPLAINTS, CALL APPIAH WITHIN REACH. COPIUS AMOUNTS URINE OUT PUT THIS SHIFT WITH BUMEX GTT. WILL CONTINUE TO MONITOR.
--- NOTE | 2018-08-26 19:00 | NUR ---
awake. pleasant & coop. not rude to this medical writer @ present. night monitor shows sinus rhythm 1st degree avb pvcs. #20 lt wrist saline lock. #18 rac bumex gtt infusing @ 0.5mghr. ice & peanut butter & yesika crackers given per request. humphreys cath in place. clear yellow. fall precautions cont.
--- NOTE | 2018-08-26 20:00 | NUR ---
up to bedside chair per request.
--- NOTE | 2018-08-26 21:15 | NUR ---
assisted to bed. christiane well.
--- NOTE | 2018-08-27 00:15 | NUR ---
awake. no distress. air sampling and monitoring shows sinus rhythm 1st degree avb pvcs.
--- NOTE | 2018-08-27 02:00 | NUR ---
eyes closed. resps even & unlabored. no apparent distredd. baby formula mixer shows sinus rhythm 1st degree avb pvcs.
--- NOTE | 2018-08-27 04:45 | NUR ---
lab here. blood drawn.
[2018-08-27 04:55] VITALS: BP 128/87
--- NOTE | 2018-08-27 05:00 | NUR ---
stood to weigh. christiane well.
[2018-08-27 05:08] LABS: HEMATOCRIT 46.4 % (39.0-50.0); HEMOGLOBIN 14.6 g/dl (14.0-18.0); IMMATURE GRANULOCYTES 0.5 % (0.0-5.0); MEAN CELL VOLUME 89.7 fL CALC (80.0-100.0); MEAN CORPUSCULAR HGB 28.2 pG CALC (26.0-32.0); MEAN CORPUSCULAR HGB CONC 31.5 g/L CALC (32.0-36.0); NEUT# 4.93 thou/uL (1.82-7.42); RED BLOOD COUNT 5.17 mill/uL (4.70-6.10); RED CELL DISTRI WIDTH 15.2 % (11.5-15.5)
[2018-08-27 05:17] LABS: ALBUMIN 3.4 g/dL (3.2-5.0); ALKALINE PHOSPHATASE 79 u/l (38-126); BUN 19 mg/dL (9-20); BUN/CREATININE RATIO 18 (12-20 (CALC)); CHLORIDE 90 mmol/l (95-108); CREATININE 1.1 mg/dL (0.7-1.3); GFR > 60 ML/MIN (>=60 (CALC)); GFR FOR AFR.AMER. > 60 ML/MIN (>=60 (CALC)); SGOT/AST 29 u/l (17-59); SODIUM 140 mmol/l (137-146); TOTAL PROTEIN 7.5 g/dL (6.3-8.2)
[2018-08-27 05:27] LABS: ANION GAP 15 (6-22 (CALC)); CARBON DIOXIDE 39 mmol/l (22-30); POTASSIUM 3.5 mmol/l (3.5-5.1)
--- NOTE | 2018-08-27 06:03 | NUR ---
awake. watching tv. pleasant this shift.
[2018-08-27 08:00] VITALS: BP 125/97
--- NOTE | 2018-08-27 08:09 | NUR ---
PT SEEN AWAKE, ALERT, ORIENTED X 3. LUNGS CLEAR. PT REMAINS ON BUMEX DRIP AT THIS TIME, OUTPUT 1850 THIS AM. PT DOES APPEAR TO BE BOTHERED BY EACH INTERACTION WITH NURSING.
--- NOTE | 2018-08-27 11:09 | NUR ---
PT SEEN BY DR COOK THIS MORNING, PLAN TO TRANSFER TO M/S TO ALLOW FOR INCREASE IN AMBULATION.
--- NOTE | 2018-08-27 12:33 | NUR ---
REPORT PROVIDED TO SOFIA, TO FLOOR SOON.
--- NOTE | 2018-08-27 12:46 | NUR ---
PT CAME FROM ICU VIA WHEELCHAIR. PT IS BEING DEMANDING WANTS REBOLLAR OUT. TOLD HIM I WILL LET CHRIS BRADY KNOW. PT STATED HE WILL TAKE A SHOWER LATER. CALL LIGHT IN REACH.
[2018-08-27 12:50] VITALS: BP 129/86
[2018-08-27 15:10] VITALS: BP 108/74
--- NOTE | 2018-08-27 16:45 | NUR ---
PT IS BEING UNCOMPLAINT TO USE URINAL FOR MEASUREMENT OF URINE. PT STATED I VOID IN THE TOILET AND MAYBE IN THE SHOWER TO. BLADDER SCAN PT 10ML URINE ONLY NOTED. MEDICATED PT WITH PERCOCET FOR PAIN FOR A HEADACHE. PT DENIES ANY OTHER NEEDS AT THIS TIME. CALL LIGHT IN REACH.
--- NOTE | 2018-08-27 19:00 | NUR ---
RECEIVED REPORT FROM DAY NURSE. PT IS SITTING ON THE SIDE OF THE BED TALKING WITH VISITOR. NO NEEDS AT THIS TIME. CALL APPIAH IN REACH. WILL CONTINUE TO MONITOR.
[2018-08-27 19:35] VITALS: BP 118/87
--- NOTE | 2018-08-27 21:04 | NUR ---
PT SITTING ON THE SIDE OF THE BED. NO COMPLAINTS AT THIS TIME. PT REQUESTING LOTION FOR DRY FEET. ASSESMENT COMPLETED AT THIS TIME(SEE INTERVENTIONS) LUNG SOUNDS CLEAR, HEART SOUNDS NORMAL, BOWEL SOUNDS ACTIVE, ABD IS LARGE, FIRM AND DISTENDED. +2 EDEMA NOTED TO BILAT LOWER EXTREMITIES. REDNESS NOTED TO SHINS. NO FURTHER NEEDS AT THIS TIME. CALL APPIAH IN REACH. WILL CONTINUE TO MONITOR.
[2018-08-28] VITALS (7 sets, daily range): BP systolic 91–126; BP diastolic 52–98
--- NOTE | 2018-08-28 | NUR ---
PT RESTING IN BED AT THIS TIME. NO S/S OF DISTRESS NOTED. CALL APPIAH IN REACH. WILL CONTINUE TO MONITOR.
--- NOTE | 2018-08-28 01:50 | NUR ---
PT C/ O ITCHING ALL OVER BODY, NO REDNESS OR WELTS NOTED. NO SWOLLEN TOUNGE. SCELERAS ARE RED. PT OFFERED LOTION, POWDER AND A SHOWER. PT DECLINED. CALL APPIAH IN REACH. WILL CONTINUE TO MONITOR.
--- NOTE | 2018-08-28 02:24 | NUR ---
PT DECIDED TO SHOWER AT THIS TIME. SALT PLANT OPERATOR IN TO ASSIST PT.
--- NOTE | 2018-08-28 04:00 | NUR ---
PT APPEARS ASLEEP AT THIS TIME. NO DISTRESS NOTED. CALL APPIAH IN REACH. WILL CONTINUE TO MONITOR.
--- NOTE | 2018-08-28 07:25 | NUR ---
REPORT RECEIVED FROM SANDRA DE SANTIAGO. PT SLEEPING AT THIS TIME. CALL LIGHT WITHIN REACH.
--- NOTE | 2018-08-28 09:14 | NUR ---
AM MEDS ADMINSITERED. PT REFUSNG LOVENOX SQ, STATES "I AINT TAKING NO SHOT IN MY BELLY." INDICATION DISCUSSED. PT STATES UNDERSTANDING. PT STATES ANTICIPATION OF DISCHARGE. DISCHARGE PROCESS REVIEWED. REPORTING OF CONCERNS ENCOURAGED. CALL LIGHT REVIEWED AND IN REACH.
--- NOTE | 2018-08-28 12:41 | NUR ---
PT REPORTS THROBBING IN CENTER OF CHEST. BP 91/52, PULSE 86 BPM, O2 SAT 96 % ON RA. STAT EKG ORDERED, RT NOTIFIED.
--- NOTE | 2018-08-28 13:17 | NUR ---
PT REPORTS RELIEF OF CHEST THROBBING.
--- NOTE | 2018-08-28 16:09 | NUR ---
PT SLEEPING AT THIS TIME.
--- NOTE | 2018-08-28 18:18 | NUR ---
EARLIER IN DAY PT REMOVED OWN IV IN ANTICIPATION OF DISCHARGE. PT NOT DISCHARGED TODAY. NEW IVS NEEDED PER DR. MCQUEEN IN CASE OF EMERGENCY. PT INFORMED OF THIS. REFUSING NEW IVS AT THIS TIME. STATES UNDERSTANDING OF DR. MCQUEEN'S WISHES.
--- NOTE | 2018-08-28 19:39 | NUR ---
Report recieved from Shahana Aguila.
--- NOTE | 2018-08-28 23:14 | NUR ---
PT C/O BECOMING DIZZY WHEN STANDING. EDUCATED PT TO RISE SLOWING AND CALL FOR ASSISTNACE. P VOICED UNDERSTING. V/S TAKEN. BP 136/100 HR 95 RESP 20 L.WILL CONTINUE TO MONITOR.
[2018-08-29 00:05] VITALS: BP 131/84
--- NOTE | 2018-08-29 04:30 | NUR ---
pt resting in bed with eyes closed. no distress or pain noted. bed in lowest position. call light in reach. will monitor.
[2018-08-29 04:55] VITALS: BP 120/81
[2018-08-29 05:34] LABS: HEMOGLOBIN 14.1 g/dl (14.0-18.0); IMMATURE GRANULOCYTES 0.4 % (0.0-5.0); MEAN CELL VOLUME 88.9 fL CALC (80.0-100.0); MEAN CORPUSCULAR HGB 28.5 pG CALC (26.0-32.0); NEUT# 3.86 thou/uL (1.82-7.42); RED BLOOD COUNT 4.95 mill/uL (4.70-6.10); RED CELL DISTRI WIDTH 14.9 % (11.5-15.5)
[2018-08-29 05:52] LABS: ALBUMIN 3.2 g/dL (3.2-5.0); ALKALINE PHOSPHATASE 70 u/l (38-126); ANION GAP 15 (6-22 (CALC)); BILIRUBIN, TOTAL 0.8 mg/dL (0.0-1.4); BUN 18 mg/dL (9-20); BUN/CREATININE RATIO 17 (12-20 (CALC)); CARBON DIOXIDE 32 mmol/l (22-30); CHLORIDE 94 mmol/l (95-108); CREATININE 1.1 mg/dL (0.7-1.3); GFR > 60 ML/MIN (>=60 (CALC)); GFR FOR AFR.AMER. > 60 ML/MIN (>=60 (CALC)); MAGNESIUM 1.9 mg/dL (1.6-2.3); POTASSIUM 4.2 mmol/l (3.5-5.1); SGOT/AST 26 u/l (17-59); SODIUM 137 mmol/l (137-146); TOTAL PROTEIN 6.9 g/dL (6.3-8.2)
--- NOTE | 2018-08-29 07:10 | NUR ---
PT REPORT RECIEVED FROM David ARROYORN. PT RESTING. NO S/S OF DISTRESS. CALL LIGHT IN REACH. WILL CONTINUE TO MONITOR.
[2018-08-29 08:54] VITALS: BP 100/76
--- NOTE | 2018-08-29 08:54 | NUR ---
PT A/O X3. SPEECH IS CLEAR. RESP EVEN AND UNLABORED. LUNG SOUNDS CLEAR. TELE IN PLACE. BOWEL SOUNDS ACTIVE X4. STRONG RADIAL AND PEDAL PULSES. PT HAS GENERALIZED EDEMA. #18 RAC AND #20 RH SL. FLUSHED AND PATENT. SITES HEALTHY. PT DENIES ANY PAIN OR NEEDS. UPON GIVING PT MORNING MEDICATION PT WAS VERY RUDE AND DEMANDING. WANTING A COUPLE OF SODAS. WHICH WERE GIVEN TO PT BY FLOOR WAXER. POC DISCUSSED. SAFETY PRECAUTIONS IN PLACE. CALL LIGHT IN REACH. WILL CONTINUE TO MONITOR.
[2018-08-29 10:50] VITALS: BP 140/69
--- NOTE | 2018-08-29 12:25 | NUR ---
PT RESTING IN RECLINER. NOT VERY RESPONSE TO QUESTION. NO C/O PAIN OR NEEDS. TELE IN PLACE. CALL LIGHT IN REACH. WILL CONTINUE TO MONITOR.
[2018-08-29 15:05] VITALS: BP 112/78
[2018-08-29] MEDS ORDERED: ALDACTONE25 MG PO (16:02)
[2018-08-29] MEDS ORDERED: BUMETANIDE1 MG PO (16:02)
[2018-08-29] MEDS ORDERED: LOSARTAN POTASS25 MG PO (16:02)
[2018-08-29] MEDS ORDERED: PANTOPRAZOLE SO40 M1 PO (16:03)
--- NOTE | 2018-08-29 18:00 | NUR ---
D/C INSTRUCTIONS DISCUSSED W/ PT. PT STATES UNDERSTANDING. IV REMOVED. CATHETER INTACT. PT ALREADY DRESSED. ANXIOUS TO LEAVE.
--- NOTE | 2018-08-29 18:14 | NUR ---
Discharge instructions given. Patient verbalizes understanding of same. Discharged in stable condition via Ambulatory to *Other with *Other. All belongings sent with pt.
== END 2018-08-29 18:15 | disposition home or self-care (01) | DRG 292 ==
LOC: ED 06:03 → ED-I 08:00 → ED 08:11 → ICU 08:12 → MS2 08-27 12:45
PROVIDERS: Family Medicine; Internal Medicine; ADMIT Internal Medicine Nephrology; ATTEND Internal Medicine Nephrology
PROC: 0T9B70Z Drainage of Bladder with Drainage Device, Via Natural or Artificial Opening (ICD-10-PCS; principal; 2018-08-25)
DX: I11.0 Hypertensive heart disease with heart failure (principal); Z68.41 Body mass index [BMI] 40.0-44.9, adult; I50.23 Acute on chronic systolic (congestive) heart failure; I42.0 Dilated cardiomyopathy; J44.9 Chronic obstructive pulmonary disease, unspecified; E11.9 Type 2 diabetes mellitus without complications; E66.01 Morbid (severe) obesity due to excess calories; E78.5 Hyperlipidemia, unspecified; G47.33 Obstructive sleep apnea (adult) (pediatric); T50.1X6A Underdosing of loop [high-ceiling] diuretics, initial encounter; Z59.0 Homelessness; Z91.11 Patient's noncompliance with dietary regimen; Z91.128 Patient's intentional underdosing of medication regimen for other reason; Z95.810 Presence of automatic (implantable) cardiac defibrillator
CPT/HCPCS: J1650

== ENCOUNTER 2018-09-05 10:02 | Observation (INO) | payer SELFPAY ==
[~2018-09-05] VITALS: Ht 188 cm; Wt 57.0 kg
[~2018-09-05 10:02] MED LIST changes: +ALDACTONE25 MG PO; +BUMETANIDE1 MG PO; +DICLOFENAC SODIUM1 % TOP; +IBUPROFEN200 MG PO; +PANTOPRAZOLE SO40 M1 PO
[2018-09-05 11:06] LABS: HEMATOCRIT 49.3 % (39.0-50.0); HEMOGLOBIN 15.5 g/dl (14.0-18.0); IMMATURE GRANULOCYTES 0.5 % (0.0-5.0); MEAN CORPUSCULAR HGB CONC 31.4 g/L CALC (32.0-36.0); NEUT# 5.07 thou/uL (1.82-7.42); RED BLOOD COUNT 5.54 mill/uL (4.70-6.10); RED CELL DISTRI WIDTH 15.1 % (11.5-15.5)
[2018-09-05 11:12] LABS: ALKALINE PHOSPHATASE 68 u/l (38-126); ANION GAP 19 (6-22 (CALC)); BILIRUBIN, TOTAL 1.7 mg/dL (0.0-1.4); BUN 22 mg/dL (9-20); BUN/CREATININE RATIO 20 (12-20 (CALC)); CARBON DIOXIDE 23 mmol/l (22-30); CHLORIDE 103 mmol/l (95-108); CREATININE 1.1 mg/dL (0.7-1.3); GFR > 60 ML/MIN (>=60 (CALC)); GFR FOR AFR.AMER. > 60 ML/MIN (>=60 (CALC)); LIPASE 54 u/l (23-300); POTASSIUM 4.9 mmol/l (3.5-5.1); SGOT/AST 36 u/l (17-59); SODIUM 139 mmol/l (137-146)
[2018-09-05 11:16] LABS: TOTAL PROTEIN 8.3 g/dL (6.3-8.2)
[2018-09-05 11:17] LABS: ALBUMIN 4.2 g/dL (3.2-5.0)
[2018-09-05 11:47] LABS: URINE BLOOD DIPSTICK TRACE-LYSED (NEGATIVE); URINE COLOR YELLOW; URINE GLUCOSE - DIPSTICK NEGATIVE (NEGATIVE); URINE KETONE NEGATIVE (NEGATIVE); URINE LEUK ESTERASE NEGATIVE (NEGATIVE); URINE PH 5.5 (4.5-8.0); URINE PROTEIN - DIPSTICK 100 mg/dL (NEG-TRACE); URINE SPECIFIC GRAVITY >=1.030
[2018-09-05 11:52] LABS: URINE BILIRUBIN - DIPSTICK NEGATIVE (NEGATIVE)
[2018-09-05 11:54] LABS: URINE NITRITE - DIPSTICK NEGATIVE (Negative)
[2018-09-05 11:58] LABS: BARBITURATES NEGATIVE (NEGATIVE); COCAINE NEGATIVE (NEGATIVE); METHADONE NEGATIVE (NEGATIVE); OXCYCODONE NEGATIVE (NEGATIVE); TETRAHYDROCANNABIONOL NEGATIVE (NEGATIVE); TRICYLIC ANTIDEPRESSANTS NEGATIVE (NEGATIVE)
[2018-09-05 12:02] LABS: URINE EPITHELIAL CELLS FEW EPI/hpf (0-FEW); URINE RBC 0-2 RBC/hpf (0-5)
[2018-09-05 17:30] VITALS: BP 133/107
[2018-09-05 18:30] VITALS: BP 130/97
== END 2018-09-05 19:30 | disposition left against medical advice (07) | DRG 293 ==
LOC: ED 10:02 → ED-I 15:35 → ED 15:54 → ICU 15:55
PROVIDERS: Emergency Medicine; ADMIT Internal Medicine Nephrology; ATTEND Internal Medicine Nephrology
DX: I11.0 Hypertensive heart disease with heart failure (principal); I50.23 Acute on chronic systolic (congestive) heart failure; I42.8 Other cardiomyopathies; E66.9 Obesity, unspecified; Z95.810 Presence of automatic (implantable) cardiac defibrillator; Z59.0 Homelessness; F15.10 Other stimulant abuse, uncomplicated
CPT/HCPCS: J2060; Q9967

== ENCOUNTER 2018-09-07 15:58 | Emergency (ER) | payer SELFPAY ==
[~2018-09-07] VITALS: Ht 188 cm; Wt 100.0 kg
[2018-09-07 16:03] VITALS: BP 133/100
[2018-09-08] MEDS ORDERED: MIRALAX3350 N1 PO (00:36)
== END 2018-09-07 18:20 | disposition left against medical advice (07) | DRG 951 ==
LOC: ED 15:58 → LWOBS 18:19
DX: Z91.19 Patient's noncompliance with other medical treatment and regimen (principal)

== ENCOUNTER 2018-09-07 21:30 | Emergency (ER) | payer SELFPAY ==
[~2018-09-07] VITALS: Ht 188 cm; Wt 127.2 kg
[2018-09-07 22:37] LABS: HEMATOCRIT 46.1 % (39.0-50.0); HEMOGLOBIN 14.5 g/dl (14.0-18.0); IMMATURE GRANULOCYTES 0.6 % (0.0-5.0); MEAN CELL VOLUME 89.2 fL CALC (80.0-100.0); MEAN CORPUSCULAR HGB CONC 31.5 g/L CALC (32.0-36.0); NEUT# 3.81 thou/uL (1.82-7.42); RED BLOOD COUNT 5.17 mill/uL (4.70-6.10); RED CELL DISTRI WIDTH 15.2 % (11.5-15.5)
[2018-09-07 22:55] LABS: ALBUMIN 3.8 g/dL (3.2-5.0); ALKALINE PHOSPHATASE 68 u/l (38-126); AMYLASE 36 u/l (30-110); ANION GAP 16 (6-22 (CALC)); BILIRUBIN, TOTAL 1.1 mg/dL (0.0-1.4); BUN 18 mg/dL (9-20); BUN/CREATININE RATIO 16 (12-20 (CALC)); CARBON DIOXIDE 27 mmol/l (22-30); CHLORIDE 102 mmol/l (95-108); CREATININE 1.2 mg/dL (0.7-1.3); GFR > 60 ML/MIN (>=60 (CALC)); GFR FOR AFR.AMER. > 60 ML/MIN (>=60 (CALC)); LIPASE 93 u/l (23-300); SGOT/AST 27 u/l (17-59); SODIUM 141 mmol/l (137-146); TOTAL PROTEIN 7.8 g/dL (6.3-8.2)
[2018-09-07 23:01] LABS: POTASSIUM 3.8 mmol/l (3.5-5.1)
[2018-09-07 23:55] LABS: URINE BLOOD DIPSTICK NEGATIVE (NEGATIVE); URINE COLOR YELLOW; URINE GLUCOSE - DIPSTICK NEGATIVE (NEGATIVE); URINE KETONE TRACE mg/dL (NEGATIVE); URINE LEUK ESTERASE TRACE (NEGATIVE); URINE NITRITE - DIPSTICK NEGATIVE (Negative); URINE PH 5.5 (4.5-8.0); URINE PROTEIN - DIPSTICK 100 mg/dL (NEG-TRACE); URINE SPECIFIC GRAVITY >=1.030
[2018-09-07 23:58] LABS: URINE BILIRUBIN - DIPSTICK SMALL (NEGATIVE)
[2018-09-08 00:01] LABS: BARBITURATES NEGATIVE (NEGATIVE); COCAINE NEGATIVE (NEGATIVE); METHADONE NEGATIVE (NEGATIVE); OXCYCODONE NEGATIVE (NEGATIVE); TETRAHYDROCANNABIONOL NEGATIVE (NEGATIVE); TRICYLIC ANTIDEPRESSANTS NEGATIVE (NEGATIVE)
[2018-09-08 00:02] LABS: URINE BACTERIA FEW hpf; URINE MUCUS MODERATE hpf (NONE-FEW); URINE RBC 0-2 RBC/hpf (0-5); URINE SQUAMOUS EPITHELIAL CELL FEW EPI/hpf (0-FEW)
[2018-09-08 00:15] VITALS: BP 128/78
[2018-09-08] MEDS ORDERED: MIRALAX3350 N1 PO (00:36)
== END 2018-09-08 00:56 | disposition home or self-care (01) | DRG 392 ==
LOC: ED 21:30
PROVIDERS: Family Medicine
DX: R10.84 Generalized abdominal pain (principal); K59.00 Constipation, unspecified; F19.10 Other psychoactive substance abuse, uncomplicated; I42.9 Cardiomyopathy, unspecified; I11.0 Hypertensive heart disease with heart failure; I50.9 Heart failure, unspecified; Z95.810 Presence of automatic (implantable) cardiac defibrillator

== ENCOUNTER 2018-09-21 18:12 | Emergency (ER) | payer SELFPAY ==
[~2018-09-21] VITALS: Ht 188 cm; Wt 120.0 kg
[~2018-09-21 18:12] MED LIST changes: +MIRALAX3350 N1 PO
[2018-09-21 19:21] LABS: HEMATOCRIT 48.8 % (39.0-50.0); HEMOGLOBIN 15.2 g/dl (14.0-18.0); IMMATURE GRANULOCYTES 0.4 % (0.0-5.0); MEAN CELL VOLUME 87.3 fL CALC (80.0-100.0); MEAN CORPUSCULAR HGB 27.2 pG CALC (26.0-32.0); MEAN CORPUSCULAR HGB CONC 31.1 g/L CALC (32.0-36.0); NEUT# 4.95 thou/uL (1.82-7.42); RED BLOOD COUNT 5.59 mill/uL (4.70-6.10); RED CELL DISTRI WIDTH 15.8 % (11.5-15.5)
[2018-09-21 19:34] LABS: ALBUMIN 3.9 g/dL (3.2-5.0); BILIRUBIN, TOTAL 2.4 mg/dL (0.0-1.4); CREATININE 1.6 mg/dL (0.7-1.3); TOTAL PROTEIN 7.9 g/dL (6.3-8.2)
[2018-09-21 19:36] LABS: POTASSIUM 4.9 mmol/l (3.5-5.1)
[2018-09-21] MEDS ORDERED: DOXYCYCL HYC100 MG PO (20:08)
[2018-09-21 20:13] VITALS: BP 160/78
[2018-09-21 20:36] LABS: URINE BLOOD DIPSTICK TRACE-LYSED (NEGATIVE); URINE GLUCOSE - DIPSTICK NEGATIVE (NEGATIVE); URINE KETONE NEGATIVE (NEGATIVE); URINE LEUK ESTERASE NEGATIVE (NEGATIVE); URINE NITRITE - DIPSTICK NEGATIVE (Negative); URINE PH 5.5 (4.5-8.0); URINE PROTEIN - DIPSTICK 100 mg/dL (NEG-TRACE); URINE SPECIFIC GRAVITY >=1.030
[2018-09-21 20:37] LABS: URINE COLOR AMBER
[2018-09-21 20:38] LABS: URINE BILIRUBIN - DIPSTICK NEGATIVE (NEGATIVE)
[2018-09-21 20:41] LABS: BARBITURATES NEGATIVE (NEGATIVE); COCAINE NEGATIVE (NEGATIVE); METHADONE NEGATIVE (NEGATIVE); OXCYCODONE NEGATIVE (NEGATIVE); TETRAHYDROCANNABIONOL NEGATIVE (NEGATIVE); TRICYLIC ANTIDEPRESSANTS NEGATIVE (NEGATIVE)
[2018-09-21 20:45] LABS: URINE MUCUS FEW hpf (NONE-FEW); URINE WBC 0-2 WBC/hpf (0-5)
== END 2018-09-21 20:28 | disposition home or self-care (01) | DRG 195 ==
LOC: ED 18:12
PROVIDERS: Family Medicine
DX: J18.9 Pneumonia, unspecified organism (principal); F17.220 Nicotine dependence, chewing tobacco, uncomplicated; R50.9 Fever, unspecified; R09.81 Nasal congestion; R09.89 Other specified symptoms and signs involving the circulatory and respiratory systems; R05 Cough

== ENCOUNTER 2018-09-23 19:16 | Emergency (ER) | payer SELFPAY ==
[~2018-09-23] VITALS: Ht 188 cm; Wt 136.0 kg
[~2018-09-23 19:16] MED LIST changes: +DOXYCYCL HYC100 MG PO
[2018-09-23 20:11] LABS: HEMATOCRIT 45.3 % (39.0-50.0); HEMOGLOBIN 14.4 g/dl (14.0-18.0); IMMATURE GRANULOCYTES 0.5 % (0.0-5.0); MEAN CELL VOLUME 85.5 fL CALC (80.0-100.0); MEAN CORPUSCULAR HGB 27.2 pG CALC (26.0-32.0); MEAN CORPUSCULAR HGB CONC 31.8 g/L CALC (32.0-36.0); NEUT# 5.39 thou/uL (1.82-7.42); RED BLOOD COUNT 5.3 mill/uL (4.70-6.10); RED CELL DISTRI WIDTH 15.9 % (11.5-15.5)
[2018-09-23] MEDS ORDERED: CLARITHROMYC500 M2 PO (21:16)
[2018-09-23 21:30] VITALS: BP 130/88
== END 2018-09-23 21:35 | disposition home or self-care (01) | DRG 194 ==
LOC: ED 19:16
PROVIDERS: Family Medicine
DX: J18.9 Pneumonia, unspecified organism (principal); I42.9 Cardiomyopathy, unspecified; M19.90 Unspecified osteoarthritis, unspecified site; I11.0 Hypertensive heart disease with heart failure; I50.9 Heart failure, unspecified; F17.220 Nicotine dependence, chewing tobacco, uncomplicated

== ENCOUNTER 2018-09-24 10:56 | Emergency (ER) | payer SELFPAY ==
[~2018-09-24] VITALS: Ht 188 cm; Wt 110.0 kg
[~2018-09-24 10:56] MED LIST changes: +CLARITHROMYC500 M2 PO
[2018-09-24 12:14] LABS: HEMATOCRIT 45.5 % (39.0-50.0); HEMOGLOBIN 14.7 g/dl (14.0-18.0); IMMATURE GRANULOCYTES 0.5 % (0.0-5.0); MEAN CORPUSCULAR HGB 27.5 pG CALC (26.0-32.0); MEAN CORPUSCULAR HGB CONC 32.3 g/L CALC (32.0-36.0); NEUT# 6.8 thou/uL (1.82-7.42); RED BLOOD COUNT 5.35 mill/uL (4.70-6.10)
[2018-09-24 12:27] LABS: ALBUMIN 3.6 g/dL (3.2-5.0); ALKALINE PHOSPHATASE 79 u/l (38-126); ANION GAP 17 (6-22 (CALC)); BILIRUBIN, TOTAL 2.2 mg/dL (0.0-1.4); BUN 34 mg/dL (9-20); BUN/CREATININE RATIO 25 (12-20 (CALC)); CARBON DIOXIDE 18 mmol/l (22-30); CHLORIDE 100 mmol/l (95-108); CREATININE 1.4 mg/dL (0.7-1.3); GFR 54 ML/MIN (>=60 (CALC)); GFR FOR AFR.AMER. > 60 ML/MIN (>=60 (CALC)); SGOT/AST 376 u/l (17-59); SODIUM 131 mmol/l (137-146); TOTAL PROTEIN 7.8 g/dL (6.3-8.2)
[2018-09-24 13:48] LABS: URINE BLOOD DIPSTICK TRACE-INTACT (NEGATIVE); URINE COLOR YELLOW; URINE GLUCOSE - DIPSTICK NEGATIVE (NEGATIVE); URINE KETONE NEGATIVE (NEGATIVE); URINE LEUK ESTERASE NEGATIVE (NEGATIVE); URINE NITRITE - DIPSTICK NEGATIVE (Negative); URINE PROTEIN - DIPSTICK 100 mg/dL (NEG-TRACE); URINE SPECIFIC GRAVITY >=1.030
[2018-09-24 13:52] LABS: URINE BILIRUBIN - DIPSTICK SMALL (NEGATIVE)
[2018-09-24 13:53] LABS: BARBITURATES NEGATIVE (NEGATIVE); COCAINE NEGATIVE (NEGATIVE); METHADONE NEGATIVE (NEGATIVE); OXCYCODONE NEGATIVE (NEGATIVE); TETRAHYDROCANNABIONOL NEGATIVE (NEGATIVE); TRICYLIC ANTIDEPRESSANTS NEGATIVE (NEGATIVE)
[2018-09-24 13:56] LABS: URINE HYALINE CAST FEW lpf (NONE-RARE); URINE SQUAMOUS EPITHELIAL CELL FEW EPI/hpf (0-FEW)
[2018-09-24 14:57] VITALS: BP 145/101
== END 2018-09-24 14:57 | disposition short-term general hospital (02) | DRG 292 ==
LOC: ED 10:56 → ED-I 13:50 → ED 14:57
PROVIDERS: Emergency Medicine
DX: I50.9 Heart failure, unspecified (principal); E87.2 Acidosis; R04.2 Hemoptysis; J44.9 Chronic obstructive pulmonary disease, unspecified; R06.02 Shortness of breath; R05 Cough; F15.90 Other stimulant use, unspecified, uncomplicated; I25.2 Old myocardial infarction; R10.11 Right upper quadrant pain; M54.5 Low back pain